=== PATIENT | female | born 1965 ===

== ENCOUNTER 2020-12-07 04:50 | Emergency (ER) | payer BC, OTHER ==
[~2020-12-07] VITALS: Ht 157.5 cm; Wt 73.7 kg
--- NOTE | 2020-12-07 04:55 | NUR ---
INITIAL PT CONTACT. PT PRESENTS TO ED C/O BILAT HIP PAIN, DENIES TRAUMA STATES SHE HAS BEEN WALKING FOR TWO DAYS AND PAIN IS MUCH WORSE WITH AMBULATION. "I JUST NEED A REFERAL TO THE [facility], SOME XRAYS AND A SHOT OF TORADOL." PT AMBULATORY WITH STEADY GAIT FROM LOBBY TO ROOM 17. PT SITTING UPRIGHT ON GURNEY, NADN, VSS. PT DENIES ANY ADDITIONAL NEEDS AT THIS TIME. CALL LIGHT AND PERSONAL BELONGINGS WITHIN REACH. AWAITING ERP.
[2020-12-07] MEDS ORDERED: KETOROLAC 30 MG/1 ML ONE (05:23)
[2020-12-07] MEDS ORDERED: HYDROcodone/APAP 5/325 TABLET ONE (05:24)
[2020-12-07] MEDS ORDERED: KETOROLAC 30 MG/1 ML IM ONE (05:30)
[2020-12-07] MEDS ORDERED: HYDROcodone/APAP 5/325 TABLET PO ONE (05:30)
--- NOTE | 2020-12-07 06:07 | NUR ---
PT REFUSING TO LEAVE ROOM UPON RECEIVING D/C INSTRUCTIONS. "I STILL HURT, I NEED MORE PAIN MEDS, THIS SHIT HURTS AND YOU AREN'T LISTENING TO ME. YOU HAVENT GIVEN ME ENOUGH PAIN MEDS. ASK THE DOCTOR RIGHT NOW. I AM GOING TO WRITE A DAMN COMPLAINT ABOUT YOU AND THAT DOCTOR, THEN I AM GOING BACK TO [place]. THIS SHIT IS RIDICULOUS. YOU KNOW I CANT EVEN WALK, I KNOW I WALKED IN HERE BUT THAT'S WHEN I WAS UP AND MOVING, NOW IM NOT. GO TALK TO THAT DOCTOR AND GET ME MORE MEDS." ERP NOTIFIED OF PT BEHAVIOR AND REQUEST, ERP AT BEDSIDE DISCUSSING PLAN OF CARE WITH PT.
[2020-12-07 06:11] VITALS: BP 145/72
--- NOTE | 2020-12-07 06:24 | NUR ---
Patient given discharge instructions and they have confirmed that they understand the instructions. Patient ambulatory with steady gait.
== END 2020-12-07 06:26 | disposition home or self-care (01) ==
LOC: ED 06:15
DX: M16.0 Bilateral primary osteoarthritis of hip (principal)
CPT/HCPCS: 96372; 99283; J1885